=== PATIENT | male | born 1960 | race Two or more races ===

== ENCOUNTER 2023-02-01 07:47 | Outpatient (CLI) | payer OTHER | END 2023-02-01 08:06 | disposition home or self-care (01) | LOC: RAD 07:47 | PROVIDERS: ATTEND Physical Medicine & Rehabilitation Hospice and Palliative Medicine | DX: M54.2 Cervicalgia (principal); M54.6 Pain in thoracic spine; M54.59 Other low back pain; M16.12 Unilateral primary osteoarthritis, left hip; M16.11 Unilateral primary osteoarthritis, right hip; M75.41 Impingement syndrome of right shoulder ==

== ENCOUNTER 2023-04-26 06:53 | Outpatient (CLI) | payer OTHER | END 2023-04-26 07:20 | disposition home or self-care (01) | LOC: MRI 06:53 | PROVIDERS: ATTEND Physical Medicine & Rehabilitation | DX: M54.59 Other low back pain (principal); M54.16 Radiculopathy, lumbar region | CPT/HCPCS: 72148 ==